=== PATIENT | female | born 1990 | race Caucasian/White ===

== ENCOUNTER 2017-06-07 12:29 | Emergency (ER) | payer MEDICAID, OTHER ==
[~2017-06-07] VITALS: Ht 167.6 cm; Wt 51.3 kg
[~2017-06-07 12:29] MED LIST: NKM; PEPCID20 MG ORAL
[2017-06-07] MEDS ORDERED: UNOBMED (12:37)
[2017-06-07] MEDS ORDERED: LORazepam 0.5mg tab ORAL ONE (13:30)
--- NOTE | 2017-06-07 13:38 | Emergency Room Report ---
History of Present Illness General Chief Complaint: Vomiting Source: Patient Present Illness HPI 27-year-old female presents to the emergency department complaining of shakiness , shortness of breath, feeling is that she can't breathe, nauseated and dry heaving 2 days. Patient reports increase in and diabetes and she is having a stressful time in school. Patient denies fevers, chills, recent travel or claudication. She denies painful respirations she states it feels as though she just is not getting a full breath. Patient denies she states she is on her period and is taking oral contraceptives. She states that she feels as though at times her heart is racing she denies dizziness, syncope, chest pain , hx of cardiac disease, drug use or THC use. Allergies: Coded Allergies: HYDROCODONE (Verified Allergy, Unknown, 07/04/15) Patient History Past Medical History: see triage record Past Surgical History: none Pertinent Family History: none Last Menstrual Period: on period Reviewed Nursing Documentation: PMH: Agreed; PSxH: Agreed Nursing Documentation-PMH Past Medical History: No Stated History Review of Systems All Other Systems: negative except mentioned in HPI Physical Exam Vital Signs Date Time Temp Pulse Resp B/P (MAP) Pulse Ox O2 Delivery O2 Flow Rate FiO2 06/07/17 12:31 97.7 57 16 117/84 98 Room Air 97.7 Medical Decision Making PA Attestation Dr. Cheung is my supervising Physician whom patient management has been discussed with. Diagnostic Impression: Primary Impression: Anxious reaction Additional Impression: Nausea & vomiting Qualified Codes: R11.2 - Nausea with vomiting, unspecified ER Course 27-year-old female presents to the emergency department complaining of shakiness , shortness of breath, feeling is that she can't breathe, nauseated and dry heaving 2 days. Patient reports increase in and diabetes and she is having a stressful time in school. Patient denies fevers, chills, recent travel or claudication. She denies painful respirations she states it feels as though she just is not getting a full breath. Patient denies she states she is on her period and is taking oral contraceptives. She states that she feels as though at times her heart is racing she denies dizziness, syncope, chest pain , hx of cardiac disease, drug use or THC use. Ddx considered but are not limited to anxiety, ID, PE, asthma, thyroid storm, hyperthyroid, EPS Vital signs: are WNL, pt. is afebrile H&PE are most consistent with anxiety attack- Oxygen saturation is normal, non- tachycardic nontachypneic patient is nontoxic in appearance in no acute distress. Benign abdominal exam. ORDERS: none required at this time, the diagnosis is clinical ED INTERVENTIONS: -10mg Reglan for nausea/ dry heaves - 0.5mg Ativan -I do not identify an emergent condition at this time. With current presentation , pt. is stable for close outpatient follow up and conservative treatment. D/ w pt. to return promptly to ED with worsening or new symptoms.- Pt. (and or responsible constitution party) verbalizes' understanding and agreement with proposed treatment plan.proposed treatment plan. DISCHARGE: At this time pt. is stable for d/c to home. Will provide printed patient care instructions, and any necessary prescriptions. Care plan and follow up instructions have been discussed with the patient prior to discharge. Labs Test 06/07/17 12:00 Urine HCG, Qualitative Negative (NEGATIVE) Urine Opiates Screen Negative (NEGATIVE) Urine Barbiturates Screen Negative (NEGATIVE) Phencyclidine (PCP) Screen Negative (NEGATIVE) Urine Amphetamines Screen Negative (NEGATIVE) Urine Benzodiazepines Screen Negative (NEGATIVE) Urine Cocaine Screen Negative (NEGATIVE) Urine Marijuana (THC) Screen Negative (NEGATIVE) Last Vital Signs Date Time Temp Pulse Resp B/P (MAP) Pulse Ox O2 Delivery O2 Flow Rate FiO2 06/07/17 12:31 97.7 57 16 117/84 98 Room Air 97.7 Disposition: HOME, SELF-CARE Condition: Stable Scripts Buspirone Hcl* (BUSPAR*) 10 Mg Tablet 10 MG ORAL THREE TIMES A DAY, #12 TAB 0 Refills Prov: Karen Barrientos P.A. 06/07/17 Ondansetron Odt* (ZOFRAN ODT*) 8 Mg Tab.rapdis 4 MG ORAL Q6H PRN for Nausea & Vomiting, #9 TAB Prov: Karen Barrientos P.A. 06/07/17 Departure Forms: Return to School Return to School On: June 11, 2017 School Release Restrictions: None Return to Full Activity: June 11, 2017 Patient Instructions: Nausea and Vomiting, Adult, Panic Attacks, [id number] Additional Instructions: Take medications as directed. Do not drink alcohol, drive, or operate heavy machinery while taking Anti- anxiety Medication/ Buspar as this may cause drowsiness Follow up with a Primary Care Provider in 3-5 days, even if your symptoms have resolved. -[facility] mental health urgent care information is provided for follow up if needed. Return sooner to ED if new symptoms occur, or current symptoms become worse. s. - Please note that this Emergency Department Report was dictated using [employer] wind up helper technology software, occasionally this can lead to erroneous entry secondary to interpretation by the dictation equipment. Karen Barrientos June 07, 2017 13:38
[2017-06-07] MEDS ORDERED: BUSPAR10 MG ORAL (13:40)
[2017-06-07] MEDS ORDERED: ZOFRAN ODT8 MG ORAL (13:40)
[2017-06-07 16:01] VITALS: BP 117/84
[2017-06-07 16:05] VITALS: BP 117/84
== END 2017-06-07 14:00 | disposition home or self-care (01) ==
LOC: EMR 13:03
DX: F41.1 Generalized anxiety disorder (principal); R11.2 Nausea with vomiting, unspecified; Z88.5 Allergy status to narcotic agent
CPT/HCPCS: 80307; 81025; 99284